=== PATIENT | male | born 1960 | race Caucasian/White ===

== ENCOUNTER 2017-05-27 22:22 | Emergency (ER) | payer OTHER ==
[~2017-05-27] VITALS: Ht 180.3 cm; Wt 117.9 kg
[2017-05-27 23:14] VITALS: BP 127/82
--- NOTE | 2017-05-27 23:29 | ED GI/GU/ABDOMINAL COMPLAINT ---
History of Present Illness General Chief Complaint: Abdominal Pain/Flank Pain Stated Complaint: ABD PAIN, CONSTIPATION Source: patient Exam Limitations: no limitations Vital Signs & Intake/Output Vital Signs & Intake/Output Vital Signs Date Time Temp Pulse Resp B/P B/P Pulse O2 O2 Flow FiO2 Mean Ox Delivery Rate 05/27 2314 98.1 65 18 127/82 96 Room Air ED Intake and Output 05/28 0000 05/27 1200 Intake Total 100 Output Total Balance 100 Intake, Oral 100 Patient 260 lb Weight Weight Estimated Measurement Method Allergies Coded Allergies: NO KNOWN ALLERGIES (UNKNOWN 05/27/17) Reconcile Medications Omeprazole Magnesium (Prilosec Otc) 20 MG TABLET.DR 1 TAB PO DAILY STOMACH PAIN Polyethylene Glycol 3350 (Miralax) 17 GRAM/DOSE POWDER 17 GM PO BID CONSTIPATION mix with water, juice, soda, coffee or tea Triage Note: RECEIVED 56 YO MALE C/O MID ABDOMINAL PAIN X ONE WEEK TO 10 DAYS, NO C/O N/V. PT ALSO REPORTS CONSTIPATION, LAST B.M. 2 DAYS AGO. PT REPORTS PAIN RADIATING TO BACK. + FLATUS Triage Nurses Notes Reviewed? yes Onset: Gradual Duration: day(s): Timing: recent history Quality/Severity: burning, cramping Location: epigastric Radiation: no radiation Activities at Onset: none Prior Abdominal Problems: none Modifying Factors: Worsens With: palpation. Associated Symptoms: abdominal pain HPI: 56 yo gentleman in prior good health with 7-10 day history of mid epigastric tenderness, no nausea, vomiting, diarrhea. HE notes that his last bowel movement was 3 days ago. He has no fever, chills, dysuria, chest pain. He is otherwise well. Past History Travel History Traveled to [place] past 21 day No Medical History Any Pertinent Medical History? see below for history Neurological: NONE EENT: NONE Cardiovascular: NONE Respiratory: NONE Gastrointestinal: NONE Hepatic: NONE Renal: NONE Musculoskeletal: NONE Psychiatric: NONE Endocrine: NIDDM Blood Disorders: NONE Cancer(s): NONE Surgical History Surgical History: none Psychosocial History What is your primary language Lebanese Tobacco Use: Never used Family History Hx Contributory? No Review of Systems Review of Systems Constitutional: Reports: no symptoms. EENTM: Reports: no symptoms. Respiratory: Reports: no symptoms. Cardiovascular: Reports: no symptoms. GI: Reports: no symptoms. Genitourinary: Reports: no symptoms. Musculoskeletal: Reports: no symptoms. Skin: Reports: no symptoms. Neurological/Psychological: Reports: no symptoms. Hematologic/Endocrine: Reports: no symptoms. Immunologic/Allergic: Reports: no symptoms. All Other Systems: Reviewed and Negative Physical Exam Physical Exam General Appearance: well developed/nourished, mild distress Head: atraumatic, normal appearance Eyes: Bilateral: normal appearance. Ears, Nose, Throat, Mouth: hearing grossly normal, moist mucous membrane Neck: normal inspection, supple, full range of motion Respiratory: normal breath sounds, chest non-tender, no respiratory distress, quiet respiration, lungs clear Cardiovascular: regular rate/rhythm Gastrointestinal: normal bowel sounds, soft, mild mid epigastric tenderness to palpation. Back: normal inspection Extremities: normal range of motion Neurologic/Psych: no motor/sensory deficits, awake, alert, oriented x 3 Skin: intact, normal color, warm/dry Core Measures ACS in differential dx? No Sepsis Present: No Sepsis Focused Exam Completed? No Progress Differential Diagnosis: appendicitis, biliary colic, gastritis, hepatitis, pancreatitis, prostatitis Plan of Care: Orders Procedure Date/time Status TROPONIN LEVEL 05/27 2246 Complete LIPASE 05/27 2246 Complete HEPATIC FUNCTION PANEL 05/27 2246 Complete CBC WITHOUT DIFFERENTIAL 05/27 2246 Complete BASIC METABOLIC PANEL 05/27 2246 Complete AMYLASE 05/27 2246 Complete EKG 05/27 2246 Active Laboratory Tests 05/27/17 2345: Anion Gap 13, Estimated GFR > 60, BUN/Creatinine Ratio 20.0, Glucose 131 H, Calcium 9.8, Total Bilirubin 0.7, Direct Bilirubin 0.5 H, AST 20, ALT 42, Alkaline Phosphatase 54, Troponin I < 0.01, Total Protein 7.2, Albumin 4.2, Amylase 54, Lipase 190, CBC w Diff NO MAN DIFF REQ, RBC 4.91, MCV 89.5, MCH 29.9 , MCHC 33.5, RDW 13.6, MPV 8.4, Gran % 58.4, Lymphocytes % 28.9, Monocytes % 7.2 , Eosinophils % 4.8, Basophils % 0.7, Absolute Granulocytes 3.8, Absolute Lymphocytes 1.9, Absolute Monocytes 0.5, Absolute Eosinophils 0.3, Absolute Basophils 0 Diagnostic Imaging: Viewed by Me: CT Scan. Discussed w/RAD: CT Scan. Radiology Impression: PATIENT: RAFAELA AGEE PRESENT AGE: 56 PATIENT ACCOUNT NO: [id number] : 58 LOCATION: [facility] ORDERING PHYSICIAN: Victor M Dixon MD SERVICE DATE: 05/27/17 EXAM TYPE: CAT - CT ABD & PELVIS W/O IV CONTRAS EXAMINATION: CT ABDOMEN AND PELVIS WITHOUT CONTRAST CLINICAL INFORMATION: Mid epigastric abdominal pain. COMPARISON: Chest radiographs from January 13, 2017. TECHNIQUE: Contiguous axial thin section helical images of the abdomen and pelvis were performed without oral or IV contrast. The data set was reformatted in the coronal and sagittal planes and reviewed on an independent workstation. DLP: 1360 mGy-cm. FINDINGS: Within the posterior basal segment of the right lower lobe on image 32 /888, there is a 1.7 cm nodule with mildly hazy borders, possibly outside medical sales representative of spiculation. There is scarring within the medial segment of the right middle lobe anteriorly. The visualized portions of the heart are unremarkable. The liver is of normal size and attenuation without focal lesions nor intrahepatic biliary ductal dilation. A normal gallbladder is identified. There is no wall thickening or discernible pericholecystic fluid. The spleen and adrenal glands are unremarkable. There is fullness to the distal body and tail of the pancreas with mild adjacent stranding. There is also an approximately 6 mm coarse calcification. There are no drainable fluid collections. Both kidneys are of normal size and attenuation without hydronephrosis or nephrolithiasis. There is no abdominal free fluid. There is neither mesenteric nor retroperitoneal lymphadenopathy. There is sigmoid diverticulosis without evidence of diverticulitis; otherwise, unremarkable unopacified loops of small and large bowel are identified. In normal appendix is present. There is no pelvic free fluid. The urinary bladder is unremarkable. There is neither pelvic nor inguinal lymphadenopathy. Bone windows: Neither sclerotic nor lytic bone lesions are identified. IMPRESSION: Fullness to the distal body and tail of the pancreas with mild adjacent fat stranding without demonstrable drainable fluid collections. The appearance is nonspecific, but could be outside medical sales representative of pancreatitis. However, that there is an underlying mass lesion cannot be excluded. Correlate with patient history, clinical exam and laboratory values. Consider correlation with a follow-up abdominal MRI with MRCP sequence following treatment and/or resolution of symptoms. 17 mm likely spiculated posterior basal segment right lower lobe nodule. The appearance is nonspecific, though worrisome for neoplasm. Consider correlation with a dedicated chest CT. Sigmoid diverticulosis without evidence of diverticulitis. DICTATED BY: Sekou Bey MD DATE/TIME DICTATED:05/28/176 EXTENSION SERVICE AGENT:KARMA DATE/TIME TRANSCRIBED:05/28/176 CONFIDENTIAL, DO NOT COPY WITHOUT APPROPRIATE AUTHORIZATION. <Electronically signed in Other Vendor System> SIGNED BY: Sekou Bey MD 05/28/1716 Initial ED EKG: nsr, no acute changes. Departure Departure Disposition: HOME OR SELF CARE Condition: Stable Clinical Impression Primary Impression: Abdominal pain Secondary Impressions: Abnormal abdominal CT scan, Abnormal CT scan of lung Referrals: Godfrey ROCK,Clinton Oconnor (PCP/Family) Departure Forms: Customer Survey General Discharge Information Prescriptions: Current Visit Scripts Polyethylene Glycol 3350 (Miralax) 17 GM PO BID #255 GM mix with water, juice, soda, coffee or tea Omeprazole Magnesium (Prilosec Otc) 1 TAB PO DAILY #30 TAB Comments 05/28/17, 0:52.... pt feeling better after supportive medications.... discussed subtle results of ct scan and copy given to patient... he will follow up with his smitha PMD. Supportive medications prescribed.
[2017-05-27 23:55] LABS: ABSOLUTE BASOPHIL COUNT 0 /CUMM (0.0-0.2); ABSOLUTE EOSINOPHIL COUNT 0.3 /CUMM (0.0-0.7); ABSOLUTE GRANULOCYTE CT 3.8 /CUMM (1.4-6.5); ABSOLUTE LYMPH COUNT 1.9 /CUMM (1.2-3.4); ABSOLUTE MONOCYTE COUNT 0.5 /CUMM (0.10-0.60); BASOPHIL % 0.7 % (0.0-2.0); EOSINOPHIL % 4.8 % (0-5); GRANULOCYTE % 58.4 % (42.2-75.2); MEAN CORPUSCULAR HGB 29.9 PG (27.0-31.0); MEAN CORPUSCULAR HGB CONC 33.5 G/DL (33.0-37.0); MEAN CORPUSCULAR VOLUME 89.5 FL (80.0-94.0); MEAN PLATELET VOLUME 8.4 FL (7.4-10.4); PLATELET COUNT 176 /CUMM (130-400); RBC DISTRIBUTION WIDTH 13.6 % (11.5-14.5); RED BLOOD CELL CT 4.91 /CUMM (4.70-6.10); WHITE BLOOD CELL COUNT 6.6 /CUMM (4.8-10.8)
--- NOTE | 2017-05-28 00:17 | CT SCAN REPORT ---
EXAMINATION: CT ABDOMEN AND PELVIS WITHOUT CONTRAST CLINICAL INFORMATION: Mid epigastric abdominal pain. COMPARISON: Chest radiographs from January 13, 2017. TECHNIQUE: Contiguous axial thin section helical images of the abdomen and pelvis were performed without oral or IV contrast. The data set was reformatted in the coronal and sagittal planes and reviewed on an independent workstation. DLP: 1360 mGy-cm. FINDINGS: Within the posterior basal segment of the right lower lobe on image 32/888, there is a 1.7 cm nodule with mildly hazy borders, possibly software sales representative of spiculation. There is scarring within the medial segment of the right middle lobe anteriorly. The visualized portions of the heart are unremarkable. The liver is of normal size and attenuation without focal lesions nor intrahepatic biliary ductal dilation. A normal gallbladder is identified. There is no wall thickening or discernible pericholecystic fluid. The spleen and adrenal glands are unremarkable. There is fullness to the distal body and tail of the pancreas with mild adjacent stranding. There is also an approximately 6 mm coarse calcification. There are no drainable fluid collections. Both kidneys are of normal size and attenuation without hydronephrosis or nephrolithiasis. There is no abdominal free fluid. There is neither mesenteric nor retroperitoneal lymphadenopathy. There is sigmoid diverticulosis without evidence of diverticulitis; otherwise, unremarkable unopacified loops of small and large bowel are identified. In normal appendix is present. There is no pelvic free fluid. The urinary bladder is unremarkable. There is neither pelvic nor inguinal lymphadenopathy. Bone windows: Neither sclerotic nor lytic bone lesions are identified. IMPRESSION: Fullness to the distal body and tail of the pancreas with mild adjacent fat stranding without demonstrable drainable fluid collections. The appearance is nonspecific, but could be software sales representative of pancreatitis. However, that there is an underlying mass lesion cannot be excluded. Correlate with patient history, clinical exam and laboratory values. Consider correlation with a follow-up abdominal MRI with MRCP sequence following treatment and/or resolution of symptoms. 17 mm likely spiculated posterior basal segment right lower lobe nodule. The appearance is nonspecific, though worrisome for neoplasm. Consider correlation with a dedicated chest CT. Sigmoid diverticulosis without evidence of diverticulitis.
[2017-05-28] MEDS ORDERED: MIRALAX119 GM PO (00:51)
[2017-05-28] MEDS ORDERED: PRILOSEC OTC20 M1 PO (00:51)
== END 2017-05-28 01:01 ==
LOC: ERH 22:22
PROVIDERS: Pediatrics
DX: R10.13 Epigastric pain (principal); R93.5 Abnormal findings on diagnostic imaging of other abdominal regions, including retroperitoneum; R91.8 Other nonspecific abnormal finding of lung field
CPT/HCPCS: 74176; 93005; 93010

== ENCOUNTER 2017-07-10 01:56 | Emergency (ER) | payer OTHER ==
[~2017-07-10] VITALS: Ht 180.3 cm; Wt 113.4 kg
[~2017-07-10 01:56] MED LIST: MIRALAX119 GM PO; PRILOSEC OTC20 M1 PO
--- NOTE | 2017-07-10 02:05 | ED GI/GU/ABDOMINAL COMPLAINT ---
History of Present Illness General Chief Complaint: Abdominal Pain/Flank Pain Stated Complaint: ABD PAIN RAIDIATING TO BACK Source: patient Exam Limitations: no limitations Vital Signs & Intake/Output Vital Signs & Intake/Output Vital Signs Date Time Temp Pulse Resp B/P B/P Pulse O2 O2 Flow FiO2 Mean Ox Delivery Rate 07/10 031 95.7 68 18 148/77 96 Room Air 07/10 0206 97 Room Air 07/10 0203 95.2 70 18 157/80 96 Room Air Allergies Coded Allergies: NO KNOWN ALLERGIES (UNKNOWN 05/27/17) Reconcile Medications Omeprazole Magnesium (Prilosec Otc) 20 MG TABLET.DR 1 TAB PO DAILY STOMACH PAIN Polyethylene Glycol 3350 (Miralax) 17 GRAM/DOSE POWDER 17 GM PO BID CONSTIPATION mix with water, juice, soda, coffee or tea Triage Nurses Notes Reviewed? yes Onset: Gradual Duration: week(s):, waxing and waning Timing: recent history Quality/Severity: cramping Location: lower abdomen Radiation: no radiation Activities at Onset: none Modifying Factors: Worsens With: palpation. Associated Symptoms: abdominal pain HPI: 56 yo gentleman several weeks of abdominal pain, known pancreatic cyst vs mass, presents with lower abdominal pain for the past 2-3 days. "I ate peanuts and I know that I have diverticulitis sometimes." He also notes that he has felt constipated and that it has been several days since he has had a bowel movemet. He notes no nausea, vomiting, chest pain, shortness of breath. He is otherwise well. Past History Travel History Traveled to [place] past 21 day No Medical History Any Pertinent Medical History? see below for history Neurological: NONE EENT: NONE Cardiovascular: NONE Respiratory: NONE Gastrointestinal: NONE Hepatic: NONE Renal: NONE Musculoskeletal: NONE Psychiatric: NONE Endocrine: NIDDM Blood Disorders: NONE Cancer(s): NONE Surgical History Surgical History: none Psychosocial History What is your primary language Niuean Tobacco Use: Never used Family History Hx Contributory? No Review of Systems Review of Systems Constitutional: Reports: no symptoms. EENTM: Reports: no symptoms. Respiratory: Reports: no symptoms. Cardiovascular: Reports: no symptoms. GI: Reports: no symptoms. Genitourinary: Reports: no symptoms. Musculoskeletal: Reports: no symptoms. Skin: Reports: no symptoms. Neurological/Psychological: Reports: no symptoms. Hematologic/Endocrine: Reports: no symptoms. Immunologic/Allergic: Reports: no symptoms. All Other Systems: Reviewed and Negative Physical Exam Physical Exam General Appearance: well developed/nourished, no apparent distress Head: atraumatic, normal appearance Eyes: Bilateral: normal appearance. Ears, Nose, Throat, Mouth: hearing grossly normal, moist mucous membrane Neck: normal inspection, supple, full range of motion Respiratory: normal breath sounds, chest non-tender, no respiratory distress, quiet respiration, lungs clear Cardiovascular: regular rate/rhythm Gastrointestinal: normal bowel sounds, soft, no organomegaly, mild tenderness in mid epigastrum. mild tenderness in rlq, suprapubic, llq without rebound or guarding. Back: normal inspection Extremities: normal range of motion Neurologic/Psych: no motor/sensory deficits, awake, alert, oriented x 3 Skin: intact, normal color, warm/dry Core Measures ACS in differential dx? No Sepsis Present: No Sepsis Focused Exam Completed? No Progress Differential Diagnosis: diverticulitis vs other. Plan of Care: Orders Procedure Date/time Status URINALYSIS 07/10 206 Complete TROPONIN LEVEL 07/10 204 Complete LIPASE 07/10 204 Complete HEPATIC FUNCTION PANEL 07/10 204 Complete CBC WITHOUT DIFFERENTIAL 07/10 204 Complete BASIC METABOLIC PANEL 07/10 204 Complete AMYLASE 07/10 204 Complete EKG 07/10 204 Active Laboratory Tests 07/10/17 0214: Anion Gap 14, Estimated GFR > 60, BUN/Creatinine Ratio 18.3, Glucose 124 H, Calcium 9.8, Total Bilirubin 0.9, Direct Bilirubin 0.2, AST 23, ALT 49, Alkaline Phosphatase 57, Troponin I < 0.01, Total Protein 7.6, Albumin 4.6, Amylase 100, Lipase 559 H, CBC w Diff NO MAN DIFF REQ, RBC 5.37, MCV 90.7, MCH 30.2, MCHC 33.3, RDW 13.0, MPV 8.8, Gran % 68.7, Lymphocytes % 22.3, Monocytes % 6.2, Eosinophils % 2.3, Basophils % 0.5, Absolute Granulocytes 5.8, Absolute Lymphocytes 1.9, Absolute Monocytes 0.5, Absolute Eosinophils 0.2, Absolute Basophils 0, Urine Color YEL, Urine Clarity CLEAR, Urine pH 6.5, Ur Specific [place] 1.010, Urine Protein NEG, Urine Ketones NEG, Urine Nitrite NEG, Urine Bilirubin NEG, Urine Urobilinogen 0.2, Ur Leukocyte Esterase NEG, Ur Microscopic EXAM NOT REQUIRED, Urine Hemoglobin NEG, Urine Glucose NEG 07/10/17 0205: D-Dimer High Sensitivty Cancelled Diagnostic Imaging: Viewed by Me: CT Scan. Discussed w/RAD: CT Scan. Radiology Impression: PATIENT: RAFAELA AGEE PRESENT AGE: 56 PATIENT ACCOUNT NO: [id number] : 58 LOCATION: [facility] ORDERING PHYSICIAN: Victor M Dixon MD SERVICE DATE: 07/10/17 EXAM TYPE: CAT - CT ABD & PELVIS W/O IV CONTRAS EXAMINATION: CT ABDOMEN AND PELVIS WITHOUT CONTRAST CLINICAL INFORMATION: Diffuse lower abdominal pain COMPARISON: Multiple priors, most recently chest CT and MRI from 06/02/2017 TECHNIQUE: Multidetector volumetric imaging was performed from the superior aspect of the liver through the pubic symphysis. Sagittal and coronal reformatted images were obtained on the technologist's workstation. DLP: 1213 mGy-cm FINDINGS: LUNG BASES: Redemonstration of the right lower lobe posterior nodule measuring 1.8 x 1.2 cm. This is without significant change. The lung bases are otherwise clear. The visualized cardiac structures are unremarkable. LIVER, GALLBLADDER, AND BILIARY TREE: The liver is normal in size, shape, and attenuation. No focal hepatic lesion or biliary ductal dilatation is present. The gallbladder is unremarkable with no evidence of radiopaque gallstones, gallbladder wall thickening, or obvious pericholecystic inflammatory changes. PANCREAS: Redemonstration of the cystic lesion at the pancreatic tail, measuring approximately 2.8 cm. This is without change from prior. Adjacent small calcification. The pancreatic parenchyma is otherwise unremarkable. SPLEEN: Unremarkable. ADRENAL GLANDS: Unremarkable. KIDNEYS AND URETERS: The kidneys are normal in size, shape, and attenuation. No hydronephrosis, hydroureter, or calculi seen. No perinephric stranding. BLADDER: Unremarkable. GASTROINTESTINAL TRACT: The stomach is unremarkable. The small bowel is normal in caliber. There is no obstruction. No colonic wall thickening or inflammatory change. No free air or free fluid. ABDOMINAL WALL: No significant hernia is appreciated. LYMPH NODES: Normal. VASCULAR: Unremarkable. PELVIC VISCERA: The prostate and seminal vesicles are unremarkable. OSSEOUS STRUCTURES: No acute or suspicious osseous abnormality. Mild multilevel degenerative changes throughout the spine. IMPRESSION: No acute findings of the abdomen or pelvis. Unchanged appearance of the cystic lesion at the pancreatic tail. Unchanged right lower lobe pulmonary nodule. DICTATED BY: Geronimo Beltre MD DATE/TIME DICTATED:07/10/17247 SEWER HEAD:KARMA DATE/TIME TRANSCRIBED:07/10/17247 CONFIDENTIAL, DO NOT COPY WITHOUT APPROPRIATE AUTHORIZATION. <Electronically signed in Other Vendor System> SIGNED BY: Geronimo Beltre MD 07/10/17 0256 Initial ED EKG: nsr, no acute changes. Departure Departure Disposition: HOME OR SELF CARE Condition: Stable Clinical Impression Primary Impression: Abdominal pain Secondary Impressions: Pancreatitis Referrals: Godfrey ROCK,Clinton Oconnor (PCP/Family) Departure Forms: Customer Survey General Discharge Information Comments 07/10/17, 3:10am... pt feeling somewhat better... ct scan unchanged without inflammation. labs benign except for mildly elevated lipase.... discussed at length with patient... 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
[2017-07-10 02:37] LABS: ABSOLUTE BASOPHIL COUNT 0 /CUMM (0.0-0.2); ABSOLUTE EOSINOPHIL COUNT 0.2 /CUMM (0.0-0.7); ABSOLUTE GRANULOCYTE CT 5.8 /CUMM (1.4-6.5); ABSOLUTE LYMPH COUNT 1.9 /CUMM (1.2-3.4); ABSOLUTE MONOCYTE COUNT 0.5 /CUMM (0.10-0.60); BASOPHIL % 0.5 % (0.0-2.0); EOSINOPHIL % 2.3 % (0-5); GRANULOCYTE % 68.7 % (42.2-75.2); HEMATOCRIT 48.7 % (42-52); MEAN CORPUSCULAR HGB 30.2 PG (27.0-31.0); MEAN CORPUSCULAR HGB CONC 33.3 G/DL (33.0-37.0); MEAN CORPUSCULAR VOLUME 90.7 FL (80.0-94.0); MEAN PLATELET VOLUME 8.8 FL (7.4-10.4); PLATELET COUNT 188 /CUMM (130-400); RED BLOOD CELL CT 5.37 /CUMM (4.70-6.10); WHITE BLOOD CELL COUNT 8.4 /CUMM (4.8-10.8)
--- NOTE | 2017-07-10 02:56 | CT SCAN REPORT ---
EXAMINATION: CT ABDOMEN AND PELVIS WITHOUT CONTRAST CLINICAL INFORMATION: Diffuse lower abdominal pain COMPARISON: Multiple priors, most recently chest CT and MRI from 06/02/2017 TECHNIQUE: Multidetector volumetric imaging was performed from the superior aspect of the liver through the pubic symphysis. Sagittal and coronal reformatted images were obtained on the technologist's workstation. DLP: 1213 mGy-cm FINDINGS: LUNG BASES: Redemonstration of the right lower lobe posterior nodule measuring 1.8 x 1.2 cm. This is without significant change. The lung bases are otherwise clear. The visualized cardiac structures are unremarkable. LIVER, GALLBLADDER, AND BILIARY TREE: The liver is normal in size, shape, and attenuation. No focal hepatic lesion or biliary ductal dilatation is present. The gallbladder is unremarkable with no evidence of radiopaque gallstones, gallbladder wall thickening, or obvious pericholecystic inflammatory changes. PANCREAS: Redemonstration of the cystic lesion at the pancreatic tail, measuring approximately 2.8 cm. This is without change from prior. Adjacent small calcification. The pancreatic parenchyma is otherwise unremarkable. SPLEEN: Unremarkable. ADRENAL GLANDS: Unremarkable. KIDNEYS AND URETERS: The kidneys are normal in size, shape, and attenuation. No hydronephrosis, hydroureter, or calculi seen. No perinephric stranding. BLADDER: Unremarkable. GASTROINTESTINAL TRACT: The stomach is unremarkable. The small bowel is normal in caliber. There is no obstruction. No colonic wall thickening or inflammatory change. No free air or free fluid. ABDOMINAL WALL: No significant hernia is appreciated. LYMPH NODES: Normal. VASCULAR: Unremarkable. PELVIC VISCERA: The prostate and seminal vesicles are unremarkable. OSSEOUS STRUCTURES: No acute or suspicious osseous abnormality. Mild multilevel degenerative changes throughout the spine. IMPRESSION: No acute findings of the abdomen or pelvis. Unchanged appearance of the cystic lesion at the pancreatic tail. Unchanged right lower lobe pulmonary nodule.
[2017-07-10 03:11] VITALS: BP 148/77
== END 2017-07-10 03:18 ==
LOC: ERH 01:56
PROVIDERS: Pediatrics
DX: K85.90 Acute pancreatitis without necrosis or infection, unspecified (principal)
CPT/HCPCS: 74176; 81003; 93005; 93010; 96374; J1885